=== PATIENT | male | born 1970 | race Caucasian/White ===

== ENCOUNTER 2018-12-15 11:38 | Outpatient (CLI) | payer OTHER ==
--- NOTE | 2018-12-15 11:58 | RAD ---
Exam:2 views right knee HISTORY: Pain x1 year. COMPARISON: None FINDINGS: Joint space preserved. No joint effusion. No fracture or malalignment. IMPRESSION: Unremarkable 2 views right knee.
--- NOTE | 2018-12-15 13:25 | RAD ---
RIGHT HAND 2 VIEWS: Date: 12/15/18 HISTORY: Right hand pain, disability evaluation. FINDINGS: AP and oblique views of the right hand are performed. Healed fracture of the fifth metacarpal with mi ld deformity. Arthrosis and degenerative changes. IMPRESSION: No acute process. Little change from prior study, 08/18/11. POS: OFF
== END 2018-12-15 11:39 | disposition home or self-care (01) ==
LOC: BICRAD 11:38
PROVIDERS: ATTEND Internal Medicine
DX: Z02.71 Encounter for disability determination (principal)